=== PATIENT | female | born 1975 | race Caucasian/White ===

== ENCOUNTER → 2017-10-20 14:00 | Outpatient (CLI) | payer OTHER, SELFPAY | PROVIDERS: Family Provider Internal Medicine; PCP Internal Medicine | DX: Z23 Encounter for immunization (principal) | CPT/HCPCS: 90471; 90686 ==

== ENCOUNTER → 2018-01-17 11:54 | Outpatient (CLI) | payer OTHER, SELFPAY ==
--- NOTE | 2018-01-17 | DI.MG.S_ITS ---
BILATERAL DIGITAL SCREENING MAMMOGRAM 3D/2D WITH CAD: 01/17/2018 CLINICAL: Routine screening. Family history of breast cancer. Comparison is made to exams dated: 12/23/2016 mammogram, 12/10/2015 mammogram - [facility], and 12/25/2013 mammogram - [facility]. The tissue of both breasts is extremely dense, which lowers the sensitivity of mammography. Current study was also evaluated with a Computer Aided Detection (CAD) system. No significant masses, calcifications, or other findings are seen in either breast. There has been no significant interval change. IMPRESSION: NEGATIVE There is no mammographic evidence of malignancy. A 1 year screening mammogram is recommended. This exam was interpreted at Station ID: [id number]. NOTE: For mammograms, a report in lay terms will be sent to the patient. Approximately 15% of breast malignancies will not be visualized mammographically. In the management of a palpable breast mass, a negative mammogram must not discourage biopsy of a clinically suspicious lesion. Electronically Signed By: Hellen stringer/lei:01/17/2018 14:37:03 letter sent: Normal Exam ACR BI-RADS Category 1: Negative 3341F
== END ==
PROVIDERS: PCP Internal Medicine; Visit Provider Internal Medicine
DX: Z12.31 Encounter for screening mammogram for malignant neoplasm of breast (principal); Z80.3 Family history of malignant neoplasm of breast
CPT/HCPCS: 77063; 77067

== ENCOUNTER → 2018-11-02 13:17 | Outpatient (CLI) | payer OTHER, SELFPAY | PROVIDERS: PCP Internal Medicine | DX: Z23 Encounter for immunization (principal) | CPT/HCPCS: 90471; 90686 ==

== ENCOUNTER → 2019-08-09 12:22 | Outpatient (CLI) | payer OTHER, SELFPAY ==
--- NOTE | 2019-08-09 | DI.MG.S_ITS ---
BILATERAL DIGITAL SCREENING MAMMOGRAM 3D/2D WITH CAD: 08/09/2019 CLINICAL: Routine screening. Comparison is made to exams dated: 01/17/2018 mammogram, 12/23/2016 mammogram, 12/10/2015 mammogram - [facility], 12/25/2013 mammogram - [facility], and [facility]. The tissue of both breasts is extremely dense, which lowers the sensitivity of mammography. Current study was also evaluated with a Computer Aided Detection (CAD) system. No significant masses, calcifications, or other findings are seen in either breast. There has been no significant interval change. IMPRESSION: NEGATIVE There is no mammographic evidence of malignancy. A 1 year screening mammogram is recommended. This exam was interpreted at Station ID: [id number]. NOTE: For mammograms, a report in lay terms will be sent to the patient. Approximately 15% of breast malignancies will not be visualized mammographically. In the management of a palpable breast mass, a negative mammogram must not discourage biopsy of a clinically suspicious lesion. Electronically Signed By: Kofi allan/lei:08/09/2019 18:53:20 letter sent: Normal Exam ACR BI-RADS Category 1: Negative 3341F
== END ==
PROVIDERS: PCP Internal Medicine; Referring Provider Internal Medicine; Visit Provider Internal Medicine
DX: Z12.31 Encounter for screening mammogram for malignant neoplasm of breast (principal)
CPT/HCPCS: 77063; 77067

== ENCOUNTER → 2019-08-28 14:16 | Outpatient (CLI) | payer OTHER, SELFPAY ==
[2019-08-28 16:29] LABS: Alanine Aminotransferase 26 IU/L (<35); Albumin 4.4 g/dL (3.5-5.0); Albumin Globulin Ratio 1.6 (1.0-2.8); Alkaline Phosphatase 77 U/L (38-126); Aspartate Aminotransferase 42 IU/L (14-36); Bilirubin Total 0.3 mg/dL (0.2-1.3); Bilirubin Unconjugated 0.4 mg/dL (0.0-1.1); Globulin 2.7 g/dL (1.7-4.1); HEMOLYSIS < 15 (0-50); Total Protein 7.1 g/dL (6.3-8.2)
[2019-08-28 16:46] LABS: Free T4, Direct Thyroxine 0.76 ng/dL (0.78-2.19)
[2019-08-28 16:48] LABS: Luteinizing Hormone 8.46 mIU/mL
[2019-08-28 17:00] LABS: Thyroid Stimulating Hormone 1.92 uIU/mL (0.47-4.68)
== END ==
PROVIDERS: PCP Internal Medicine; Referring Provider Internal Medicine; Visit Provider Internal Medicine
DX: N95.1 Menopausal and female climacteric states (principal); R53.83 Other fatigue; R74.0 Nonspecific elevation of levels of transaminase and lactic acid dehydrogenase [LDH]
CPT/HCPCS: 36415; 80076; 83001; 83002; 84439; 84443

== ENCOUNTER → 2019-10-17 07:52 | Outpatient (CLI) | payer OTHER, SELFPAY ==
--- NOTE | 2019-11-07 08:40 | P.HOLT.S_ITS ---
[employer]id Search Marketing Analyst Report Referral & Results Date Patient Seen: 10/17/19 Requesting provider: Yaw Birmingham Indication: Palpitations Duration of monitoring (days): 7 Diary information: There were 13 patient triggered events and 3 patient diary entries Patient triggered events were associated with sinus rhythm and PACs. Patient diary events were associated with sinus rhythm alone Data: Minimum heart rate identified was 55 beats per minute at 05:44 on 10/21/2019 Maximum heart rate was 172 beats per minute at 08:45 on 10/20/2019 Less than 1% of identified beats or either ventricular supraventricular ectopic in origin No other significant dysrhythmias identified Impression: Patient with rare PACs. No clear correlation between patient's reported symptoms any specific dysrhythmia although PACs did occur in connection with some of patient's triggered events, however other times there is no dysrhythmia whatsoever with patient reported events.
== END ==
PROVIDERS: PCP Internal Medicine; Referring Provider Internal Medicine; Visit Provider Internal Medicine
DX: R00.2 Palpitations (principal)
CPT/HCPCS: 0296T; 0298T

== ENCOUNTER → 2019-11-13 18:32 | Outpatient (CLI) | payer OTHER, SELFPAY | PROVIDERS: PCP Internal Medicine; Referring Provider Internal Medicine; Visit Provider Internal Medicine | DX: Z23 Encounter for immunization (principal) | CPT/HCPCS: 90471; 90686 ==

== ENCOUNTER → 2020-01-17 16:02 | Outpatient (CLI) | payer OTHER, SELFPAY ==
--- NOTE | 2020-01-17 16:03 | DI.MRI.S_ITS ---
PROCEDURE: MR LUMBAR SPINE WO CON INDICATIONS: LUMBAR RADICULOPATHY TECHNIQUE: Noncontrast sagittal T1 spin echo and T2 fast echo, sagittal STIR, axial T1 and T2 fast spin echo through the lumbar spine. Axial and oblique coronal T1 spin echo and STIR through the sacrum. In cases with scoliosis, additional coronal T2 fast spin echo may be performed. COMPARISON: [facility], MR, L-SPINE WITHOUT CONTRAST, 01/10/2015, 7:35. [facility], MR, L-SPINE WITHOUT CONTRAST, 04/16/2009, 9:01. [facility], MR, L-SPINE WITHOUT CONTRAST, 02/05/2010, 17:59. [facility], MR, LUMBAR SPINE W/O CONTRAST, 01/18/2013, 16:02. [facility], CR, L-SPINE 2-3 VIEWS, 03/25/2010, 11:01. [facility] [place], CR, SPINE LUMB MIN 4VW, 12/30/2014, 10:34. FINDINGS: Image quality: This examination is limited by involuntary motion artifact. Alignment and Curvature: There is normal bony alignment. Bone Marrow: Marrow is of normal overall signal. No acute vertebral body compression fractures. No sacral fractures. Spinal Cord: Conus medullaris terminates at the L1 level. Visualized cord demonstrates normal signal and size. Paraspinous Soft Tissues: No paravertebral masses. A small amount of free fluid can be seen within the pelvis, which is considered to within physiologic limits. T12-L1: Normal appearance. L1-L2: Normal appearance. L2-L3: Normal appearance. L3-L4: Normal appearance. L4-L5: The disc height and disc signal are relatively well preserved. Mild generalized disc bulge is seen. Mild facet joint hypertrophy is seen. There is kzoh-ft-smfkogru right-sided and mild left-sided neural foraminal narrowing seen. The central canal is widely patent. Mild progression compared to 2015. L5-S1: There is moderate to severe loss of disc height and disc signal. Moderate disc bulge is seen, with a central disc extrusion. There is a focal annular fissure seen posteriorly. Moderate facet joint hypertrophy is seen. There is lntp-be-wpcsgoew left-sided and at least moderate right-sided neural foraminal narrowing seen. There is a mild degree of compression seen upon the exiting right L5 nerve root. Minimal central canal narrowing is seen. Stable from the prior study. Sacrum: Sacral neural foramina appear normal throughout. Superior to the piriformis muscles, the pre-plexal structures appear normal, including the lumbosacral trunk and S1 root. Just anterior to the piriformis muscles, the sacral plexus proper demonstrates normal morphology (lumbosacral trunk, S1 to S3 nerve roots). Inferior to the piriformis muscles, the sciatic nerves appear normal. IMPRESSION: Focal L5-S1 degenerative change. Mild progression of degenerative change at L4-L5 compared to 2015. Unremarkable appearing sacrum. Dictated by: Jose F Lamar M.D. on 01/17/2020 at 17:07 Approved by: Jose F Lamar M.D. on 01/17/2020 at 17:10
== END ==
PROVIDERS: PCP Internal Medicine; Referring Provider Physical Medicine & Rehabilitation; Visit Provider Physical Medicine & Rehabilitation
DX: M47.27 Other spondylosis with radiculopathy, lumbosacral region (principal); M47.26 Other spondylosis with radiculopathy, lumbar region; M51.24 Other intervertebral disc displacement, thoracic region
CPT/HCPCS: 72148

== ENCOUNTER → 2020-02-13 16:11 | Outpatient (CLI) | payer OTHER, SELFPAY ==
[2020-02-13] MEDS: COVID-19 VACC(MODERNA-1)/PF 100 MCG/0.5 ML VIAL IM (16:18)
== END ==
PROVIDERS: PCP Internal Medicine; Visit Provider Internal Medicine
DX: Z23 Encounter for immunization (principal)
CPT/HCPCS: 0011A; 91301

== ENCOUNTER → 2020-03-03 09:33 | Outpatient (CLI) | payer OTHER, SELFPAY ==
[2020-03-04 09:56] LABS: COVID19 -Nasal RAPID Negative (Negative)
== END ==
PROVIDERS: PCP Internal Medicine; Referring Provider Physical Medicine & Rehabilitation; Visit Provider Physical Medicine & Rehabilitation
DX: Z20.822 Contact with and (suspected) exposure to COVID-19 (principal)
CPT/HCPCS: 87635

== ENCOUNTER 2020-03-04 12:27 | Outpatient (CLI) | payer OTHER, SELFPAY ==
[2020-03-04] VITALS (7 sets, daily range): BP systolic 127–142; BP diastolic 87–94; PULSE 74–89; RESP 13–20; TEMP 36.6; O2SAT 99–100
--- NOTE | 2020-03-04 12:28 | DI.RAD.S_ITS ---
PROCEDURE: PAIN L/S TRANSFORAMINAL INJECT INDICATIONS: SPONDYLOSIS COMPARISON: [facility], MR, MR LUMBAR SPINE WO CON, 01/17/2020, 16:35. FINDINGS: Fluoroscopic spot filming was performed to verify placement of spinal needles at the L4-L5 and L5-S1 level(s), as labeled on the films. Appropriate location(s) of the needle tip(s) was confirmed by injection of iodinated contrast. IMPRESSION: Intraprocedural examination within normal limits. Dictated by: Jose F Lamar M.D. on 03/04/2020 at 14:27 Approved by: Jose F Lamar M.D. on 03/04/2020 at 14:28
[2020-03-04] MEDS: IOPAMIDOL 15 ML VIAL 3 ML INJ (13:25)
[2020-03-04] MEDS: BETAMETHASONE 30 MG/5 ML MDV 12 MG INJ (13:26)
[2020-03-04] MEDS: BUPIVACAINE 0.5% (PF) VIAL 2 ML INJ (13:26)
[2020-03-04] MEDS: LIDOCAINE 1% 20 ML 10 ML INJ (13:27)
--- NOTE | 2020-03-04 13:45 | P.PCN_ITS ---
Date/Time/Diagnoses Date of procedure: 03/04/20 Time of procedure: 13:45 Pre-procedure diagnosis: 1. FORAMINAL STENOSIS WITH LE SYMPTOMS Post-procedure diagnosis: same Procedure Notes Procedure: 1. FLUOROSCOPICALLY GUIDED CONTRAST CONTROLLED TRANSFORAMINAL EPIDURAL STEROID INJECTION - RIGHT L5/S1 TFESI Indications: Shilpi is referred by Dr. Birmingham for treatment of Foraminal Stenosis with right LE Symptoms Physician: Rishabh Cota Total Fluoroscopy time (seconds): 23 Total sedation minutes: 0 Complications: none Procedure in detail & Post-procedure care: FINDINGS Foraminal Nerve Root Compression secondary to disc disease and facet hypertrophy DESCRIPTION OF PROCEDURE Following review of allergy and review of potential side effects and complications, including, but not necessarily limited to, infection, allergic reaction, local tissue breakdown, stroke, temporary or permanent nerve injury, paralysis, and possible , the patient indicated that the patient understood and agreed to proceed. An informed consent document was signed by the patient, witnessed by a nurse, and placed in the patient's chart. Additionally, other treatment options including medications, modalities, and physical therapy were reviewed with the patient. After review of previous anaesthesic history and IV conscious sedation the patient was deemed safe to proceed with today?s procedure with IV conscious sedation as ASA class II designation. Safety time-out was performed to confirm patient ID, procedure to be performed and site of procedure. IV sedation was deemed unnecessary and thus not administered by the RN after DO order, titrated to patient comfort during the course of the procedure while the patient remained responsive to all verbal commands In the prone position following sterile prep and drape of the lumbar region, the right L5/S1 posterior neuroforamen was identified fluoroscopically. The skin was anesthetized via a 25-gauge 1.5-inch needle with 1% lidocaine solution. At this point, a 25-gauge 3.5-inch spinal needle was atraumatically introduced and advanced under fluoroscopic guidance through the posterior right L5/S1 neuroforamen to approximately the anterior aspect of the canal. Depth was confirmed on lateral view. Following negative aspiration, injection of approximately 1.5cc of Isovue 200 under live fluoroscopy in the AP view confirmed excellent flow along the nerve root, into the epidural space without vascular or intrathecal uptake observed Radiological data, including multiple fluoroscopic views of the lumbosacral spine, reveal a spinal needle at the right L5/S1 posterior neuroforamen. Subsequent views show flow of contrast material flowing superiorly and inferiorly along the nerve root confirming epidural flow. Subsequently, a test dose of 1.5cc of 1% lidocaine solution was administered and patient was observed for two minutes for signs or symptoms of complications, including abdominal pain, shortness of breath, bilateral upper or lower extremity weakness, nausea and vomiting, prior to steroid injection. At this point, a total of 3cc or 20mg of dexamethasone and 6mg betamethasone was injected without incident. The procedure tolerated the procedure well without signs or symptoms of complications prior to transfer to the recovery area continued monitoring without incident. The patient was then transferred to the recovery area where they were observed for an appropriate time after the injection. The patient reported a VAS score of 5 prior to the procedure and a post-procedure VAS of 0. POST OP INSTRUCTIONS The patient was provided a Pain Log to continue to record their response to the target-specific procedure prior to follow-up visit with their referring physician. Additionally, specific post-injection care instructions and a contact number to our office were provided if concerns arise regarding possible complications associated with the procedure are suspected.
--- NOTE | 2020-03-04 13:46 | P.PCN_ITS ---
Date/Time/Diagnoses Date of procedure: 03/04/20 Time of procedure: 13:47 Pre-procedure diagnosis: 1. FORAMINAL STENOSIS WITH LE SYMPTOMS Post-procedure diagnosis: same Procedure Notes Procedure: 1. FLUOROSCOPICALLY GUIDED CONTRAST CONTROLLED TRANSFORAMINAL EPIDURAL STEROID INJECTION - RIGHT L4/5 TFESI Indications: Shilpi is referred by Dr. Birmingham for treatment of Foraminal Stenosis with Right LE Symptoms Physician: Rishabh Cota Total Fluoroscopy time (seconds): 23 Total sedation minutes: 0 Complications: none Procedure in detail & Post-procedure care: FINDINGS Foraminal Nerve Root Compression secondary to disc disease and facet hypertrophy DESCRIPTION OF PROCEDURE Following review of allergy and review of potential side effects and complications, including, but not necessarily limited to, infection, allergic reaction, local tissue breakdown, stroke, temporary or permanent nerve injury, paralysis, and possible , the patient indicated that the patient understood and agreed to proceed. An informed consent document was signed by the patient, witnessed by a nurse, and placed in the patient's chart. Additionally, other treatment options including medications, modalities, and physical therapy were reviewed with the patient. After review of previous anaesthesic history and IV conscious sedation the patient was deemed safe to proceed with today?s procedure with IV conscious sedation as ASA class II designation. Safety time-out was performed to confirm patient ID, procedure to be performed and site of procedure. IV sedation was deemed unnecessary and thus not administered by the RN after DO order, titrated to patient comfort during the course of the procedure while the patient remained responsive to all verbal commands In the prone position following sterile prep and drape of the lumbar region, the Right L4/5 posterior neuroforamen was identified fluoroscopically. The skin was anesthetized via a 25-gauge 1.5-inch needle with 1% lidocaine solution. At this point, a 25-gauge 3.5-inch spinal needle was atraumatically introduced and advanced under fluoroscopic guidance through the posterior Right L4/5 neuroforamen to approximately the anterior aspect of the canal. Depth was confirmed on lateral view. Following negative aspiration, injection of approximately 1.5cc of Isovue 200 under live fluoroscopy in the AP view confirmed excellent flow along the nerve root, into the epidural space without vascular or intrathecal uptake observed Radiological data, including multiple fluoroscopic views of the lumbosacral spine, reveal a spinal needle at the right L4/5 posterior neuroforamen. Subsequent views show flow of contrast material flowing superiorly and inferiorly along the nerve root confirming epidural flow. Subsequently, a test dose of 1.5 cc of 1% lidocaine solution was administered and patient was observed for two minutes for signs or symptoms of complications, including abdominal pain, shortness of breath, bilateral upper or lower extremity weakness, nausea and vomiting, prior to steroid injection. At this point, a total of 3cc or 20mg of dexamethasone and 6mg of betamethasone was injected without incident. The procedure tolerated the procedure well without signs or symptoms of complications prior to transfer to the recovery area continued monitoring without incident. The patient was then transferred to the recovery area where they were observed for an appropriate time after the injection. The patient reported a VAS score of 5 prior to the procedure and a post- procedure VAS of 0. POST OP INSTRUCTIONS The patient was provided a Pain Log to continue to record their response to the target-specific procedure prior to follow-up visit with their referring physician. Additionally, specific post-injection care instructions and a contact number to our office were provided if concerns arise regarding possible complications associated with the procedure are suspected.
== END 2020-03-04 13:47 | disposition home or self-care (01) ==
PROVIDERS: PCP Internal Medicine; Referring Provider Physical Medicine & Rehabilitation; Visit Provider Physical Medicine & Rehabilitation
DX: M48.061 Spinal stenosis, lumbar region without neurogenic claudication (principal); M48.07 Spinal stenosis, lumbosacral region; M51.16 Intervertebral disc disorders with radiculopathy, lumbar region; M51.17 Intervertebral disc disorders with radiculopathy, lumbosacral region
CPT/HCPCS: 64483; 64484; 64494; 99152; J0702; J2250; J3010

== ENCOUNTER → 2020-03-11 14:48 | Outpatient (CLI) | payer OTHER, SELFPAY ==
[2020-03-11] MEDS: COVID-19 VACC #2, MRNA(MOD) 100 MCG/0.5 ML VIAL IM (14:54)
== END ==
PROVIDERS: PCP Internal Medicine; Visit Provider Internal Medicine
DX: Z23 Encounter for immunization (principal)
CPT/HCPCS: 0012A; 91301

== ENCOUNTER → 2020-04-17 15:57 | Outpatient (CLI) | payer OTHER, SELFPAY ==
--- NOTE | 2020-04-17 16:05 | DI.RAD.S_ITS ---
PROCEDURE: XR LUMBAR SPINE MIN 4V INDICATIONS: herniation of intravertebral disc betweem L5-S1 TECHNIQUE: 5 views of the lumbar spine acquired, including flexion and extension views. COMPARISON: [facility], , L-SPINE 2-3 VIEWS, 03/25/2010, 11:01. FINDINGS: Bones: 5 nonrib-bearing vertebrae are present. Trace multilevel retrolisthesis. Severe disc degeneration at the L5-S1 level where there is mild facet joint arthropath.. No vertebral body compression fractures. No suspicious bony lesions. Oblique views demonstrating no pars interarticularis defects. Soft tissues: Overlying bowel gas pattern is normal. No suspicious soft tissue calcifications. IUD projecting over the mid pelvis. IMPRESSION: 1. Severe disc degeneration at the L5-S1 level where there is mild facet joint arthropathy. Dictated by: Carter Aleman [facility] Interpreted: Pearl Culver MD on 04/17/2020 at 16:19 Approved by: Pearl Culver M.D. on 04/17/2020 at 17:30
== END ==
PROVIDERS: PCP Internal Medicine; Referring Provider Physical Medicine & Rehabilitation; Visit Provider Physical Medicine & Rehabilitation
DX: M51.17 Intervertebral disc disorders with radiculopathy, lumbosacral region (principal); M47.27 Other spondylosis with radiculopathy, lumbosacral region
CPT/HCPCS: 72110

== ENCOUNTER → 2020-11-18 | Outpatient (CLI) | payer OTHER, SELFPAY | PROVIDERS: PCP Internal Medicine; Referring Provider Internal Medicine; Visit Provider Internal Medicine | DX: Z23 Encounter for immunization (principal) | CPT/HCPCS: 90471; 90686 ==

== ENCOUNTER → 2021-08-11 16:23 | Outpatient (CLI) | payer OTHER, SELFPAY ==
--- NOTE | 2021-08-11 | DI.MG.S_ITS ---
BILATERAL DIGITAL SCREENING MAMMOGRAM 3D/2D WITH CAD: 08/11/2021 CLINICAL: Routine screening. Family history of breast cancer. Comparison is made to exams dated: 08/09/2019 mammogram, 01/17/2018 mammogram, and 12/23/2016 mammogram - [facility]. The tissue of both breasts is extremely dense, which lowers the sensitivity of mammography. Current study was also evaluated with a Computer Aided Detection (CAD) system. No significant masses, calcifications, or other findings are seen in either breast. There has been no significant interval change. IMPRESSION: NEGATIVE There is no mammographic evidence of malignancy. A 1 year screening mammogram is recommended. Based on Tyrer-Cuzick model (a risk assessment model), the patient's lifetime risk is 28.7% and her 10 year risk is 6.3%. If a patient has an elevated risk, a more comprehensive evaluation should be considered and/or a referral to a genetic counselor. The [place] [employer], [employer], and NCCN Guidelines advise the consideration of Breast MRI as an adjunct to screening mammography in patients whose Lifetime risk to develop breast cancer is 20% or higher. This exam was interpreted at Station ID: [id number]. NOTE: For mammograms, a report in lay terms will be sent to the patient. Approximately 15% of breast malignancies will not be visualized mammographically. In the management of a palpable breast mass, a negative mammogram must not discourage biopsy of a clinically suspicious lesion. Electronically Signed By: Greg de la rosa/lei:08/12/2021 08:39:39 letter sent: Normal Exam ACR BI-RADS Category 1: Negative 3341F
== END ==
PROVIDERS: PCP Internal Medicine; Referring Provider Internal Medicine; Visit Provider Internal Medicine
DX: Z12.31 Encounter for screening mammogram for malignant neoplasm of breast (principal); Z80.3 Family history of malignant neoplasm of breast
CPT/HCPCS: 77063; 77067

== ENCOUNTER → 2021-12-16 15:38 | Outpatient (CLI) | payer OTHER, SELFPAY ==
--- NOTE | 2021-12-16 15:38 | DI.US.S_ITS ---
PROCEDURE: US PELVIC COMPLETE INDICATIONS: IUD string check TECHNIQUE: Real-time scanning was performed of the pelvic organs, with image documentation. Additional endovaginal scanning was necessary due to incomplete visualization of the adnexal and endometrial structures by transabdominal scanning. COMPARISON: [facility], US, US PELVIC COMPLETE, 10/09/2019, 11:43. FINDINGS: Uterus: Uterus is anteverted and normal in size at 7.8 x 4.9 x 4.4 cm. The myometrium is homogeneous. The is not well seen secondary to intrauterine device which is centrally position. Trace endocervical fluid. Ovaries: The right ovary measures 4.4 x 3.8 x 2.9 cm, with a calculated ovarian volume of 25 cc. The left ovary measures 2.3 x 2.9 x 2.2 cm, with a calculated ovarian volume of 7.6 cc. The ovaries have a normal sonographic appearance. Less than 12 follicles can be seen in each ovary. Simple right ovarian cyst measuring 4.2 cm. . Other: No pathologic free abdominal or pelvic fluid. IMPRESSION: 1. Intrauterine device in expected central endometrial position. 2. 4.2 cm simple right ovarian cyst. We strive to produce accurate, complete, and clear reports of imaging services. To assist us in improving patient care, this report was composed using standard report templates and voice recognition software. Therefore, it may contain abnormal punctuation, insertions and/or omissions. Occasional wrong-word or sound-alike substitutions may occur. Though we review the report and make efforts to correct it, we do recommend that the report be read carefully in proper context to recognize any text inaccuracies. Dictated by: Carter CUELLO Interpreted: Greg Mir MD on 12/16/2021 at 16:06 Transcribed by: LISETTE on 12/16/2021 at 16:08 Approved by: Greg Mir M.D. on 12/16/2021 at 22:19
== END ==
PROVIDERS: PCP Internal Medicine; Referring Provider Obstetrics & Gynecology; Visit Provider Obstetrics & Gynecology
DX: Z30.431 Encounter for routine checking of intrauterine contraceptive device (principal); N83.291 Other ovarian cyst, right side
CPT/HCPCS: 76830; 76856; 93976

== ENCOUNTER 2022-02-16 12:57 | Outpatient (CLI) | payer OTHER, SELFPAY ==
--- NOTE | 2022-02-16 12:58 | DI.RAD.S_ITS ---
PROCEDURE: PAIN L INTERLAMINAR/CAUDAL INJ INDICATIONS: SPONDYLOSIS COMPARISON: None. FINDINGS: Fluoroscopic spot filming was performed to verify placement of spinal needles at the L5-S1 interlaminar space level(s), as labeled on the films. Appropriate location(s) of the needle tip(s) was confirmed by injection of iodinated contrast. IMPRESSION: Access needle at the L5-S1 interlaminar space for translaminar epidural steroid injection. Dictated by: Kaitlin Alarcon MD, PhD on 02/16/2022 at 15:03 Approved by: Kaitlin Alarcon MD, PhD on 02/16/2022 at 15:03
[2022-02-16 13:09] VITALS: BP 131/87; PULSE 92; RESP 20; TEMP 36.7; O2SAT 97
--- NOTE | 2022-02-16 13:15 | PC.NURSE ---
Patient declines sedation and IV, MD aware and ok for no IV to be placed.
[2022-02-16 13:45] VITALS: BP 128/81; PULSE 88; RESP 17; O2SAT 100
[2022-02-16 13:50] VITALS: BP 125/82; PULSE 87; RESP 14; O2SAT 100
[2022-02-16] MEDS: BUPIVACAINE 0.5% (PF) 30 ML VIAL INJ (13:52)
[2022-02-16] MEDS: IOPAMIDOL 15 ML VIAL 3 ML INJ (13:52)
[2022-02-16] MEDS: DEXAMETHASONE 10 MG/ML VIAL 20 MG INJ (13:53)
[2022-02-16 13:55] VITALS: BP 138/86; PULSE 89; RESP 20; O2SAT 99
[2022-02-16 14:00] VITALS: BP 137/92; PULSE 88; RESP 20; O2SAT 98
--- NOTE | 2022-02-16 14:00 | PM.PROC.IR.1 ---
Date/Time/Diagnoses Date of procedure: 02/16/22 Time of procedure: 14:00 Pre-procedure diagnosis: 1. HNP WITH RADICULAR FEATURES, 2. MULTILEVEL CENTRAL STENOSIS, Post-procedure diagnosis: same Procedure Notes Procedure: 1. FLUOROSCOPICALLY GUIDED CONTRAST CONTROLLED INTERLAMINAR EPIDURAL STEROID INJECTION - L5/S1 Indications: Shilpi is referred by Dr. Birmingham for treatment of Bilateral Foraminal Stenosis L>R LE symptoms. Physician: Rishabh Cota Total Fluoroscopy time (seconds): 10 Total sedation minutes: 0 Complications: none Procedure in detail & Post-procedure care: FINDINGS Multilevel Central Spinal Stenosis with Nerve Root Compression DESCRIPTION OF PROCEDURE Fluoroscopically guided, contrast-controlled L5/S1 translaminar epidural steroid injection. Following review of allergy and review of potential side effects and complications, including, but not necessarily limited to, infection, allergic reaction, local tissue breakdown, temporary as well as permanent nerve injury, paralysis, stroke and possible , the patient indicated that the patient understood and agreed to proceed. An informed consent document was signed by the patient, witnessed by a nurse, and placed in the patient's chart. Additionally, other treatment options including modalities, medications, and physical therapy were reviewed with the patient. After review of previous anaesthesic history and IV conscious sedation the patient was deemed safe to proceed with today?s procedure with IV conscious sedation as ASA class II designation. Safety time-out was performed to confirm patient ID, procedure to be performed and site of procedure. IV sedation was deemed unnecessary and thus not administered by the RN after DO order, titrated to patient comfort during the course of the procedure while the patient remained responsive to all verbal commands. In the prone position, following sterile prep and drape of the lumbar region, the L5/S1 translaminar space was identified fluoroscopically. The skin was anesthetized via a 25-gauge, 1.5-inch needle with 1% lidocaine solution. At this point, a 22-gauge short bevel spinal needle was atraumatically introduced and advanced under fluoroscopic guidance into the region of the L5/S1 translaminar space. Depth was confirmed on lateral view. Radiological data, including multiple fluoroscopic views of the lumbar spine, reveal a spinal needle at the L5/S1 translaminar space. Lateral views then show placement of the needle in the epidural space. Subsequent views show contrast material flowing superiorly and inferiorly in the epidural space. No vascular or intrathecal uptake is observed. At this point, using loss of resistance technique with saline and air, the epidural space was entered. This was confirmed following negative aspiration with injection of approximately 1.5cc of Isovue 200, showing excellent epidural flow without vascular or intrathecal uptake. At this point, 1 cc of 1% lidocaine solution combined with 3cc or 20mg of dexamethasone and 6mg of betamethasone was injected without incident. The patent tolerated the procedure without signs of symptoms of complications prior to transfer to the recovery area for further monitoring. The patient was then transferred to the recovery area where they were observed for an appropriate period of time after the injection. The patient reported a VAS score of 6 prior to the procedure and a post-procedure VAS of 0. POST OP INSTRUCTIONS The patient was provided a Pain Log to continue to record their response to the target-specific procedure prior to follow-up visit with their referring physician. Additionally, specific post-injection care instructions and a contact number to our office were provided if concerns arise regarding possible complications associated with the procedure are suspected.
[2022-02-16 14:05] VITALS: BP 133/89; PULSE 89; RESP 20; O2SAT 99
--- NOTE | 2022-02-16 14:13 | PC.NURSE ---
Patient refused WC escort out. She was walked to her office in [facility] by this RN. No weakness, baseline activity level. She did not receive any sedation. Dr. Cota aware.
== END 2022-02-16 14:14 | disposition home or self-care (01) ==
PROVIDERS: PCP Internal Medicine; Referring Provider Physical Medicine & Rehabilitation; Visit Provider Physical Medicine & Rehabilitation
DX: M51.17 Intervertebral disc disorders with radiculopathy, lumbosacral region (principal); M48.07 Spinal stenosis, lumbosacral region
CPT/HCPCS: 62323; J0702; J1030; J1100

== ENCOUNTER 2022-06-17 12:25 | Outpatient (CLI) | payer OTHER, SELFPAY ==
--- NOTE | 2022-06-17 12:28 | DI.RAD.S_ITS ---
PROCEDURE: PAIN L INTERLAMINAR/CAUDAL INJ INDICATIONS: SPONDYLOSIS COMPARISON: [facility], XA, PAIN L INTERLAMINAR/CAUDAL INJ, 02/16/2022, 14:51. FINDINGS: Fluoroscopic spot filming was performed to verify placement of a spinal needle at the L5-S1 level, as labeled on the films. Appropriate location of the needle tip was confirmed by injection of iodinated contrast. IMPRESSION: No significant intraprocedural abnormality. Dictated by: Jose F Lamar M.D. on 06/17/2022 at 13:36 Approved by: Jose F Lamar M.D. on 06/17/2022 at 13:36
[2022-06-17 13:04] VITALS: BP 121/86; PULSE 72; RESP 12; O2SAT 98
[2022-06-17 13:32] VITALS: BP 128/81; PULSE 86; RESP 21; O2SAT 99
[2022-06-17] MEDS: IOPAMIDOL 15 ML VIAL 3 ML INJ (13:34)
[2022-06-17] MEDS: BUPIVACAINE 0.25% (PF) VIAL 2 ML INJ (13:34)
[2022-06-17] MEDS: DEXAMETHASONE 10 MG/ML VIAL 20 MG INJ (13:35)
[2022-06-17] MEDS: BETAMETHASONE 30 MG/5 ML MDV 6 MG INJ (13:35)
[2022-06-17 13:37] VITALS: BP 123/82; PULSE 86; RESP 13; O2SAT 97
[2022-06-17 13:40] VITALS: BP 155/84; PULSE 80; RESP 16; O2SAT 98
--- NOTE | 2022-06-17 13:40 | PM.PROC.IR.1 ---
Date/Time/Diagnoses Date of procedure: 06/17/22 Time of procedure: 13:41 Pre-procedure diagnosis: 1. HNP WITH RADICULAR FEATURES, 2. MULTILEVEL CENTRAL STENOSIS, Post-procedure diagnosis: same Procedure Notes Procedure: 1. FLUOROSCOPICALLY GUIDED CONTRAST CONTROLLED INTERLAMINAR EPIDURAL STEROID INJECTION - L5/S1 Indications: Shilpi is referred by Dr. Birmingham for treatment of Bilateral Foraminal Stenosis L>R LE symptoms. Physician: Rishabh Cota Total Fluoroscopy time (seconds): 6 Total sedation minutes: 0 Complications: none Procedure in detail & Post-procedure care: FINDINGS Multilevel Central Spinal Stenosis with Nerve Root Compression DESCRIPTION OF PROCEDURE Fluoroscopically guided, contrast-controlled L5/S1 translaminar epidural steroid injection. Following review of allergy and review of potential side effects and complications, including, but not necessarily limited to, infection, allergic reaction, local tissue breakdown, temporary as well as permanent nerve injury, paralysis, stroke and possible , the patient indicated that the patient understood and agreed to proceed. An informed consent document was signed by the patient, witnessed by a nurse, and placed in the patient's chart. Additionally, other treatment options including modalities, medications, and physical therapy were reviewed with the patient. After review of previous anaesthesic history and IV conscious sedation the patient was deemed safe to proceed with today?s procedure with IV conscious sedation as ASA class II designation. Safety time-out was performed to confirm patient ID, procedure to be performed and site of procedure. IV sedation was deemed unnecessary and thus not administered by the RN after DO order, titrated to patient comfort during the course of the procedure while the patient remained responsive to all verbal commands. In the prone position, following sterile prep and drape of the lumbar region, the L5/S1 translaminar space was identified fluoroscopically. The skin was anesthetized via a 25-gauge, 1.5-inch needle with 1% lidocaine solution. At this point, a 22-gauge short bevel spinal needle was atraumatically introduced and advanced under fluoroscopic guidance into the region of the L5/S1 translaminar space. Depth was confirmed on lateral view. Radiological data, including multiple fluoroscopic views of the lumbar spine, reveal a spinal needle at the L5/S1 translaminar space. Lateral views then show placement of the needle in the epidural space. Subsequent views show contrast material flowing superiorly and inferiorly in the epidural space. No vascular or intrathecal uptake is observed. At this point, using loss of resistance technique with saline and air, the epidural space was entered. This was confirmed following negative aspiration with injection of approximately 1.5cc of Isovue 200, showing excellent epidural flow without vascular or intrathecal uptake. At this point, 1cc of 1% lidocaine solution combined with 3cc or 20mg of dexamethasone and 6mg of betamethasone was injected without incident. The patent tolerated the procedure without signs of symptoms of complications prior to transfer to the recovery area for further monitoring. The patient was then transferred to the recovery area where they were observed for an appropriate period of time after the injection. The patient reported a VAS score of 6 prior to the procedure and a post-procedure VAS of 0. POST OP INSTRUCTIONS The patient was provided a Pain Log to continue to record their response to the target-specific procedure prior to follow-up visit with their referring physician. Additionally, specific post-injection care instructions and a contact number to our office were provided if concerns arise regarding possible complications associated with the procedure are suspected.
== END 2022-06-17 13:47 | disposition home or self-care (01) ==
LOC: RAD 12:27
PROVIDERS: PCP Internal Medicine; Referring Provider Physical Medicine & Rehabilitation; Visit Provider Physical Medicine & Rehabilitation
DX: M51.17 Intervertebral disc disorders with radiculopathy, lumbosacral region (principal); M48.07 Spinal stenosis, lumbosacral region
CPT/HCPCS: 62323; J0702; J1100; J3490

== ENCOUNTER → 2022-07-15 16:35 | Outpatient (CLI) | payer OTHER, SELFPAY ==
--- NOTE | 2022-07-15 16:36 | DI.RAD.S_ITS ---
PROCEDURE: XR FOOT RT MIN 3V INDICATIONS: foot pain TECHNIQUE: 3 views of the foot were acquired. COMPARISON: None. FINDINGS: Bones: No fractures or dislocations. 1st MTP joint osteoarthritic changes are seen with joint space narrowing and subchondral sclerosis. Well-defined plantar calcaneal enthesophyte is noted. No suspicious bony lesions. Soft tissues: No tibiotalar joint effusion. Achilles tendon appears normal. IMPRESSION: 1st MTP joint osteoarthritis. No fracture or dislocation. Plantar calcaneal enthesophyte. Dictated by: Raghu Shepherd M.D. on 07/15/2022 at 16:42 Approved by: Raghu Shepherd M.D. on 07/15/2022 at 16:43
== END ==
PROVIDERS: PCP Internal Medicine; Referring Provider Internal Medicine; Visit Provider Internal Medicine
DX: M19.071 Primary osteoarthritis, right ankle and foot (principal); M77.31 Calcaneal spur, right foot; M79.671 Pain in right foot
CPT/HCPCS: 73630

== ENCOUNTER → 2022-08-13 15:16 | Outpatient (CLI) | payer OTHER, SELFPAY ==
--- NOTE | 2022-08-13 | DI.MG.S_ITS ---
BILATERAL DIGITAL SCREENING MAMMOGRAM 3D/2D WITH CAD: 08/13/2022 CLINICAL: Routine screening. Family history of breast cancer. Comparison is made to exams dated: 08/11/2021 mammogram, 08/09/2019 mammogram, and 01/17/2018 mammogram - [facility]. Both breasts are heterogeneously dense, which may obscure small masses (category c / 51-75% glandular tissue). Current study was also evaluated with a Computer Aided Detection (CAD) system. No significant masses, calcifications, or other findings are seen in either breast. There has been no significant interval change. IMPRESSION: NEGATIVE There is no mammographic evidence of malignancy. A 1 year screening mammogram is recommended. Based on the Tyrer Cuzick model (a risk assessment model) the patient's lifetime risk is 19.8% and her 10 year risk is 4.4%. According to the ACR, ACS, and NCCN guidelines, an annual breast MRI exam along with mammogram is recommended if the patient's lifetime risk is 20% or greater. This exam was interpreted at Station ID: [id number]. NOTE: For mammograms, a report in lay terms will be sent to the patient. Approximately 15% of breast malignancies will not be visualized mammographically. In the management of a palpable breast mass, a negative mammogram must not discourage biopsy of a clinically suspicious lesion. Electronically Signed By: Luis lopez/lei:08/13/2022 21:48:58 letter sent: Normal Exam ACR BI-RADS Category 1: Negative 3341F
== END ==
PROVIDERS: PCP Internal Medicine; Referring Provider Internal Medicine; Visit Provider Internal Medicine
DX: Z12.31 Encounter for screening mammogram for malignant neoplasm of breast (principal); Z80.3 Family history of malignant neoplasm of breast
CPT/HCPCS: 77063; 77067

== ENCOUNTER → 2022-09-22 15:45 | Outpatient (CLI) | payer OTHER, SELFPAY ==
--- NOTE | 2022-09-22 | DI.MRI.S_ITS ---
PROCEDURE: MR ANKLE RT WO/W CON INDICATIONS: Ganglion, right ankle and foot TECHNIQUE: Noncontrast sagittal T1 spin echo and T2 fast spin echo with fat saturation, axial proton density fast spin echo and T2 fast spin echo with fat saturation, axial T1 spin echo with fat saturation, coronal T1 spin echo and T2 fast spin echo with fat saturation through the ankle/hindfoot. Post-contrast axial, coronal, and sagittal T1 spin echo with fat saturation through the ankle/hindfoot. COMPARISON: [facility], CR, XR FOOT RT MIN 3V, 07/15/2022, 16:31. FINDINGS: Image quality: Excellent. Bones and joints: No bone marrow contusions or fractures. No hindfoot coalitions. No osteochondral injuries of the talar dome. A small nonenhancing ganglion cyst measuring 5 x 3 x 3 mm is seen at the dorsal lateral aspect of the midfoot overlying the 4th metatarsal base, which corresponds to the palpable abnormality as indicated by skin marker. A 4 mm ganglion cyst is seen adjacent to the anterior tibialis tendon insertion. Mild degenerative spurring of the dorsal aspect of the talonavicular joint. No enhancing soft tissue mass. Medial structures: The deep and superficial layers of the deltoid ligament appear intact. The spring ligament components are intact. Mild tenosynovitis of the posterior tibialis, flexor digitorum longus, and flexor hallucis longus tendons. The posterior tibial neurovascular bundle appears normal within the tarsal tunnel, without extrinsic mass effect. Lateral structures: The anterior talofibular, calcaneofibular, and posterior talofibular ligaments appear intact. The anterior and posterior tibiofibular ligaments appear intact. The peroneus longus and brevis tendons demonstrate normal location and morphology. The sinus tarsi demonstrates normal fatty signal. Anterior structures: The tibialis anterior, extensor hallucis longus, and extensor digitorum longus tendons appear intact. The dorsal talonavicular ligament appears intact. Posterior and plantar structures: Mild thickening of the Achilles tendon is consistent with tendinosis. The proximal plantar fascia is mildly thickened without surrounding edema. A nonedematous plantar calcaneal enthesophyte is present. No abductor digiti quinti muscle atrophy to suggest Patel neuropathy. IMPRESSION: 1. Small 5 mm ganglion cyst is seen at the dorsal lateral aspect of the midfoot overlying the 4th metatarsal base that corresponds to the palpable abnormality. Additional 4 mm ganglion cyst at the medial midfoot adjacent to the anterior tibialis tendon insertion. 2. Mild diffuse tenosynovitis of the medial flexor tendons. 3. Mild Achilles tendinosis. 4. Chronic mild proximal plantar fasciitis. 5. Mild degenerative changes at the dorsal talonavicular joint. Approved by: Greg Zayas M.D. on 09/23/2022 at 13:24
== END ==
PROVIDERS: PCP Internal Medicine; Referring Provider Podiatrist; Visit Provider Podiatrist
DX: M67.471 Ganglion, right ankle and foot (principal); M65.871 Other synovitis and tenosynovitis, right ankle and foot; M72.2 Plantar fascial fibromatosis
CPT/HCPCS: 73723; A9579

== ENCOUNTER → 2022-11-11 | Outpatient (CLI) | payer OTHER, SELFPAY | PROVIDERS: PCP Internal Medicine; Referring Provider Family Medicine; Visit Provider Family Medicine | DX: Z23 Encounter for immunization (principal) | CPT/HCPCS: 90471; 90686 ==

== ENCOUNTER 2023-04-07 16:00 | Outpatient (RCR) | payer OTHER, SELFPAY ==
--- NOTE | 2023-02-09 17:56 | PT.OTN ---
Current Diagnoses Pain in left ankle and joints of left foot (02/09/23) Pain in leg, unspecified (02/09/23) Physical Therapy Treatment Note PT-OP-A Visit Information Start: 02/09/23 17:24 Freq: Status: Active Protocol: Document 02/09/23 16:30 DCW (Rec: 02/09/23 17:43 DCW [id number]) Out-Patient Physical Therapy Visit Information Visit Information Visit Type Initial Evaluation Visit Start Time 16:30 Visit Stop Time 17:15 Total Visit Minutes 45 Visit Number 1 Number of MICROFILMER Visits 0 Evaluation Information Evaluation Date 02/09/23 PT-OP-B Current Condition Start: 02/09/23 17:24 Freq: Status: Active Protocol: Document 02/09/23 16:30 DCW (Rec: 02/09/23 17:43 DCW [id number]) Current Condition History of Current Condition Onset Date January 15, 2023 Current Complaints left calf pain History of Current Condition Pt is a 47 year old female persenting with a 3.5 week history of left calf pain, limiting her ability to push- off with her foot during gait or raise up onto her toes. Pt reports she was exercising gently on an eliptical, felt a pop with medial calf pain, and stopped for a bit to let it pass. Upon restarting, she felt another pop, with significantly more pain, and had to stop. Following this incident, she was having much more difficulty with ambulation, was unable to lift her toes or stretch her calf without significant discomfort . Has improved somewhat since initial injury, but still unable to perform a heel raise or get much push-off during gait. 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 Pt does have a history of bilateral Achilles injuries, reports that she was experiencing bilateral pain of an extended period of time, eventually found out she had tears in her Achilles tendons, and her recovery lasted ~18 months, finally resolving ~1 year ago. Has been doing well since then until last month. Seen by her PCP in 01/24/23, recommended MRI, but has been denied by insurance so far. Treatment Goals Patient/Caregiver Goals Return to normal work-out intensity and frequency PT-OP-C Subjective Start: 02/09/23 17:24 Freq: Status: Active Protocol: Document 02/09/23 16:30 DCW (Rec: 02/09/23 17:43 DCW [id number]) OP-PT Subjective Patient Comments Patient Comments I haven't really wanted to go all out with my workouts, I don't want to make anything worse. Patient Reported Progress Improving Patient Questionnaires Lower Extremity Functional Scale LEFS Score 51/80 = 63.75% LEFS Impairment 1 to 19% Impaired (Score 63-79 ) PT-OP-F Manual Assessment Start: 02/09/23 17:24 Freq: Status: Active Protocol: Document 02/09/23 16:30 DCW (Rec: 02/09/23 17:43 DCW [id number]) Manual Assessments Soft Tissue Assessment Soft Tissue Mobility Assessment Tenderness with palpation 3/4: Wincing and withdraw along poterior tibialis, minimal contraction/firing of posterior tib with ankle movement. Joint Mobility Assessment Joint Mobility Assessment Good stability of joint PT-OP-K Range of Motion Start: 02/09/23 17:24 Freq: Status: Active Protocol: Document 02/09/23 16:30 DCW (Rec: 02/09/23 17:43 DCW [id number]) Ankle and Foot Goniometric Range of Motion Ankle and Foot Bilateral Active Ankle/Foot ROM WFL Yes Testing Position Sitting PT-OP-M Strength Start: 02/09/23 17:24 Freq: Status: Active Protocol: Document 02/09/23 16:30 DCW (Rec: 02/09/23 17:43 DCW [id number]) Ankle/Foot Strength Ankle and Foot Manual Muscle Testing Left Plantarflexion (S1) 2+ Poor+ Comments Pain limits PF PT-OP-Q Treatments Start: 02/09/23 17:24 Freq: Status: Active Protocol: Document 02/09/23 16:30 DCW (Rec: 02/09/23 17:45 DCW [id number]) Therapeutic Exercises Sitting Exercises Inversion Sitting Exercise Name Isometric ankle inversion vs ball Side bilateral Reps/Minutes 5 hold x20 Ankle Flexion Sitting Exercise Name 4-way ankle flexion Side left Resistance Lv 2 PT-OP-T Assessment and Plan Start: 02/09/23 17:24 Freq: Status: Active Protocol: Document 02/09/23 16:30 DCW (Rec: 02/09/23 17:55 DCW [id number]) Physical Therapy Assessment Rehab Potential Rehabilitation Potential Fair Evaluation Complexity Number of Personal Factors/Comorbidities 1-2 Number of Body Systems Impaired 1-2 Clinical Presentation at Evaluation Stable Impairments Impairments Functional Activities, Functional Mobility,Gait,Pain, Strength Goals Two Impairment Pt unable to perform usual exercise routine due to left ankle/calf pain [employer] Goal (LTG) Pt to return to prior level of 85% frequency and intensity of exercise routine without limitations due to ankle pain or weakness. LTG Duration 04/10/23 One Impairment Pt does not have an appropriate home exercise program Short Term Goal (STG) Pt to be independent and compliant with an appropriate HEP STG Duration 03/12/23 Assessment Summary Assessment Pt presents with signs and symptoms consistent with lower leg soft tissue injury. Based on continued pain and weakness, combined with pt's reports of multiple popping sounds at the time of injury, may be suggestive of potential muscle tears. Pt's biggest limitations are inversion and plantar flexion. Pain along medial malleoli, navicular insertion, and medial/ posterior calf likely suggestive of posterior tibialis involvement. Would strongly suggest advanced imaging to determine extent of potential damage and to rule in/out potential tearing. Pt may benefit from gentle mobility and strengthening exercises, if does not progress as expected, may be necessary to refer to Ortho. Physical Therapy Plan Frequency and Duration Frequency of Treatment 1-2x/week Plan of Care Start Date 02/09/23 Plan of Care End Date 04/10/23 Therapeutic Interventions Therapeutic Interventions Balance Training,Home Exercise Program,Manual Therapy, Neuromuscular Re-education, Patient/Caregiver Education, Self-Care/Home Management,Soft Tissue Mobilization, Therapeutic Activities, Therapeutic Exercises Modalities Cold Pack/Ice Massage,Electric Stimulation,Hot Packs, Ultrasound Next Visit Focus/Plan Next Note Type Treatment Note Next Visit Plan Gentle strengthening/mobility, STM, gait training, balance/ ankle strategies.
--- NOTE | 2023-02-09 17:56 | PT.OPPOC ---
Physical, Occupational & Speech Therapy At [facility] Current Diagnoses Pain in left ankle and joints of left foot (02/09/23) Pain in leg, unspecified (02/09/23) Visit Care Team Role Provider Type Yaw Birmingham MD Attending Provider Physician Family Provider Primary Care Provider Referring Provider Specialty: Internal Medicine Address: [address] [place] [address], [address], [facility] Email: [email or web address] Plan Of Care PT-OP-T Assessment and Plan Start: 02/09/23 17:24 Freq: Status: Active Protocol: Document 02/09/23 16:30 DCW (Rec: 02/09/23 17:55 DCW [id number]) Physical Therapy Assessment Rehab Potential Rehabilitation Potential Fair Evaluation Complexity Number of Personal Factors/Comorbidities 1-2 Number of Body Systems Impaired 1-2 Clinical Presentation at Evaluation Stable Impairments Impairments Functional Activities, Functional Mobility,Gait,Pain, Strength Goals Two Impairment Pt unable to perform usual exercise routine due to left ankle/calf pain Fdc Goal (LTG) Pt to return to prior level of 85% frequency and intensity of exercise routine without limitations due to ankle pain or weakness. LTG Duration 04/10/23 One Impairment Pt does not have an appropriate home exercise program Short Term Goal (STG) Pt to be independent and compliant with an appropriate HEP STG Duration 03/12/23 Assessment Summary Assessment Pt presents with signs and symptoms consistent with lower leg soft tissue injury. Based on continued pain and weakness, combined with pt's reports of multiple popping sounds at the time of injury, may be suggestive of potential muscle tears. Pt's biggest limitations are inversion and plantar flexion. Pain along medial malleoli, navicular insertion, and medial/ posterior calf likely suggestive of posterior tibialis involvement. Would strongly suggest advanced imaging to determine extent of potential damage and to rule in/out potential tearing. Pt may benefit from gentle mobility and strengthening exercises, if does not progress as expected, may be necessary to refer to Ortho. Physical Therapy Plan Frequency and Duration Frequency of Treatment 1-2x/week Plan of Care Start Date 02/09/23 Plan of Care End Date 04/10/23 Therapeutic Interventions Therapeutic Interventions Balance Training,Home Exercise Program,Manual Therapy, Neuromuscular Re-education, Patient/Caregiver Education, Self-Care/Home Management,Soft Tissue Mobilization, Therapeutic Activities, Therapeutic Exercises Modalities Cold Pack/Ice Massage,Electric Stimulation,Hot Packs, Ultrasound Next Visit Focus/Plan Next Note Type Treatment Note Next Visit Plan Gentle strengthening/mobility, STM, gait training, balance/ ankle strategies. Plan of Care Dates Plan of Care Start Date 02/09/23 Plan of Care End Date 04/10/23 Electronically Signed by: Robe Lomax, PT 02/09/23 0698 If you are in agreement with this Plan of Care, please return a signed and dated copy. I have reviewed this Plan of Care and certify that the skilled therapy services above are required to meet the patient?s needs. Physician Signature Date Printed Name and Credentials Clinical Instructor Signature Printed Name and Credentials
--- NOTE | 2023-02-15 16:48 | PT.OTN ---
Current Diagnoses Pain in left ankle and joints of left foot (02/15/23) Pain in leg, unspecified (02/15/23) Physical Therapy Treatment Note PT-OP-A Visit Information Start: 02/09/23 17:24 Freq: Status: Active Protocol: Document 02/15/23 16:00 DCW (Rec: 02/15/23 16:48 DCW [id number]) Out-Patient Physical Therapy Visit Information Visit Information Visit Type Treatment Note Visit Start Time 16:00 Visit Stop Time 16:45 Total Visit Minutes 45 Visit Number 2 Number of FINANCIAL REPRESENTATIVE Visits 0 Evaluation Information Evaluation Date 02/09/23 PT-OP-B Current Condition Start: 02/09/23 17:24 Freq: Status: Active Protocol: Document 02/09/23 16:30 DCW (Rec: 02/09/23 17:43 DCW [id number]) Current Condition History of Current Condition Onset Date January 15, 2023 Current Complaints left calf pain History of Current Condition Pt is a 47 year old female persenting with a 3.5 week history of left calf pain, limiting her ability to push- off with her foot during gait or raise up onto her toes. Pt reports she was exercising gently on an eliptical, felt a pop with medial calf pain, and stopped for a bit to let it pass. Upon restarting, she felt another pop, with significantly more pain, and had to stop. Following this incident, she was having much more difficulty with ambulation, was unable to lift her toes or stretch her calf without significant discomfort . Has improved somewhat since initial injury, but still unable to perform a heel raise or get much push-off during gait. 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 Pt does have a history of bilateral Achilles injuries, reports that she was experiencing bilateral pain of an extended period of time, eventually found out she had tears in her Achilles tendons, and her recovery lasted ~18 months, finally resolving ~1 year ago. Has been doing well since then until last month. Seen by her PCP in 01/24/23, recommended MRI, but has been denied by insurance so far. Treatment Goals Patient/Caregiver Goals Return to normal work-out intensity and frequency PT-OP-C Subjective Start: 02/09/23 17:24 Freq: Status: Active Protocol: Document 02/15/23 16:00 DCW (Rec: 02/15/23 16:48 DCW [id number]) OP-PT Subjective Patient Comments Patient Comments I stretched today and it didn 't feel like it was tearing, so it's getting better I think . PT-OP-F Manual Assessment Start: 02/09/23 17:24 Freq: Status: Active Protocol: Document 02/09/23 16:30 DCW (Rec: 02/09/23 17:43 DCW [id number]) Manual Assessments Soft Tissue Assessment Soft Tissue Mobility Assessment Tenderness with palpation 3/4: Wincing and withdraw along poterior tibialis, minimal contraction/firing of posterior tib with ankle movement. Joint Mobility Assessment Joint Mobility Assessment Good stability of joint PT-OP-K Range of Motion Start: 02/09/23 17:24 Freq: Status: Active Protocol: Document 02/09/23 16:30 DCW (Rec: 02/09/23 17:43 DCW [id number]) Ankle and Foot Goniometric Range of Motion Ankle and Foot Bilateral Active Ankle/Foot ROM WFL Yes Testing Position Sitting PT-OP-M Strength Start: 02/09/23 17:24 Freq: Status: Active Protocol: Document 02/09/23 16:30 DCW (Rec: 02/09/23 17:43 DCW [id number]) Ankle/Foot Strength Ankle and Foot Manual Muscle Testing Left Plantarflexion (S1) 2+ Poor+ Comments Pain limits PF PT-OP-Q Treatments Start: 02/09/23 17:24 Freq: Status: Active Protocol: Document 02/15/23 16:00 DCW (Rec: 02/15/23 16:48 DCW [id number]) Gym Equipment Shuttle Balance Red Details WBOS, Staggered, Lateral weight shift Therapeutic Exercises Sitting Exercises Self-STM Sitting Exercise Name Self-STM medial calf using roller Side left Standing Exercises BAPS Standing Exercise Name BAPS Side left Resistance Lv 4 Comments DF/PF, Inv/Ev, CW/CCW Calf Stretch Standing Exercise Name Calf stretch off step Comments Better with straight leg, increased pain with bent knee Neuro Re-Education Treatment Balance Activities BOSU Details BOSU Lunge Surface Blue BOSU SLS Details SLS Surface Black Foam PT-OP-T Assessment and Plan Start: 02/09/23 17:24 Freq: Status: Active Protocol: Document 02/15/23 16:00 DCW (Rec: 02/15/23 16:48 DCW [id number]) Physical Therapy Assessment Impairments Impairments Functional Activities, Functional Mobility,Gait,Pain, Strength Goals Two Impairment Pt unable to perform usual exercise routine due to left ankle/calf pain Air Crew Supervisor Goal (LTG) Pt to return to prior level of 85% frequency and intensity of exercise routine without limitations due to ankle pain or weakness. LTG Duration 04/10/23 One Impairment Pt does not have an appropriate home exercise program Short Term Goal (STG) Pt to be independent and compliant with an appropriate HEP STG Duration 03/12/23 Assessment Summary Assessment Pt showing some improvement with tolerance to calf stretching and strengthening exercises, still discomfort attempting eccentric lowering. Did well with addition of balance challenges/ankle strategies. Physical Therapy Plan Frequency and Duration Frequency of Treatment 1-2x/week Plan of Care Start Date 02/09/23 Plan of Care End Date 04/10/23 Therapeutic Interventions Therapeutic Interventions Balance Training,Home Exercise Program,Manual Therapy, Neuromuscular Re-education, Patient/Caregiver Education, Self-Care/Home Management,Soft Tissue Mobilization, Therapeutic Activities, Therapeutic Exercises Modalities Cold Pack/Ice Massage,Electric Stimulation,Hot Packs, Ultrasound Next Visit Focus/Plan Next Note Type Treatment Note Next Visit Plan Gentle strengthening/mobility, STM, gait training, balance/ ankle strategies.
--- NOTE | 2023-02-23 11:12 | PT.OTN ---
Current Diagnoses Pain in left ankle and joints of left foot (02/23/23) Pain in leg, unspecified (02/23/23) Physical Therapy Treatment Note PT-OP-A Visit Information Start: 02/09/23 17:24 Freq: Status: Active Protocol: Document 02/23/23 10:35 DCW (Rec: 02/23/23 11:12 DCW [id number]) Out-Patient Physical Therapy Visit Information Visit Information Visit Type Treatment Note Visit Start Time 10:35 Visit Stop Time 11:15 Total Visit Minutes 40 Visit Number 3 Number of SENIOR HEALTH PHYSICS TECHNICIAN Visits 0 Evaluation Information Evaluation Date 02/09/23 PT-OP-B Current Condition Start: 02/09/23 17:24 Freq: Status: Active Protocol: Document 02/09/23 16:30 DCW (Rec: 02/09/23 17:43 DCW [id number]) Current Condition History of Current Condition Onset Date January 15, 2023 Current Complaints left calf pain History of Current Condition Pt is a 47 year old female persenting with a 3.5 week history of left calf pain, limiting her ability to push- off with her foot during gait or raise up onto her toes. Pt reports she was exercising gently on an eliptical, felt a pop with medial calf pain, and stopped for a bit to let it pass. Upon restarting, she felt another pop, with significantly more pain, and had to stop. Following this incident, she was having much more difficulty with ambulation, was unable to lift her toes or stretch her calf without significant discomfort . Has improved somewhat since initial injury, but still unable to perform a heel raise or get much push-off during gait. 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 Pt does have a history of bilateral Achilles injuries, reports that she was experiencing bilateral pain of an extended period of time, eventually found out she had tears in her Achilles tendons, and her recovery lasted ~18 months, finally resolving ~1 year ago. Has been doing well since then until last month. Seen by her PCP in 01/24/23, recommended MRI, but has been denied by insurance so far. Treatment Goals Patient/Caregiver Goals Return to normal work-out intensity and frequency PT-OP-C Subjective Start: 02/09/23 17:24 Freq: Status: Active Protocol: Document 02/23/23 10:35 DCW (Rec: 02/23/23 11:12 DCW [id number]) OP-PT Subjective Patient Comments Patient Comments In typical [place] fashion, I tried jogging on a treadmill yesterday, and it actually went not too bad. I did have some pain, it wasn't really fast. PT-OP-F Manual Assessment Start: 02/09/23 17:24 Freq: Status: Active Protocol: Document 02/09/23 16:30 DCW (Rec: 02/09/23 17:43 DCW [id number]) Manual Assessments Soft Tissue Assessment Soft Tissue Mobility Assessment Tenderness with palpation 3/4: Wincing and withdraw along poterior tibialis, minimal contraction/firing of posterior tib with ankle movement. Joint Mobility Assessment Joint Mobility Assessment Good stability of joint PT-OP-K Range of Motion Start: 02/09/23 17:24 Freq: Status: Active Protocol: Document 02/09/23 16:30 DCW (Rec: 02/09/23 17:43 DCW [id number]) Ankle and Foot Goniometric Range of Motion Ankle and Foot Bilateral Active Ankle/Foot ROM WFL Yes Testing Position Sitting PT-OP-M Strength Start: 02/09/23 17:24 Freq: Status: Active Protocol: Document 02/09/23 16:30 DCW (Rec: 02/09/23 17:43 DCW [id number]) Ankle/Foot Strength Ankle and Foot Manual Muscle Testing Left Plantarflexion (S1) 2+ Poor+ Comments Pain limits PF PT-OP-Q Treatments Start: 02/09/23 17:24 Freq: Status: Active Protocol: Document 02/23/23 10:35 DCW (Rec: 02/23/23 11:12 DCW [id number]) Gym Equipment Shuttle Recovery Unilateral Heel Raises Resistance 50# Shuttle Balance Red Details WBOS, Staggered, Lateral weight shift Therapeutic Exercises Sitting Exercises Self-STM Sitting Exercise Name Self-STM lateral calf using roller Side left Standing Exercises BAPS Standing Exercise Name BAPS Side left Resistance Lv 4 Comments DF/PF, Inv/Ev, CW/CCW Manual Therapy Treatment Soft Tissue Mobilization Calf Body Location Posterior tib, Gastrosoleus Mobilization Type Strumming,Sustained Pressure Intensity/Depth Moderate Body Position Sitting Neuro Re-Education Treatment Balance Activities BOSU Details BOSU Lunge Surface Blue BOSU SLS Details SLS Surface Black Foam PT-OP-T Assessment and Plan Start: 02/09/23 17:24 Freq: Status: Active Protocol: Document 02/23/23 10:35 DCW (Rec: 02/23/23 11:12 DCW [id number]) Physical Therapy Assessment Impairments Impairments Functional Activities, Functional Mobility,Gait,Pain, Strength Goals Two Impairment Pt unable to perform usual exercise routine due to left ankle/calf pain Nursing Home Goal (LTG) Pt to return to prior level of 85% frequency and intensity of exercise routine without limitations due to ankle pain or weakness. LTG Duration 04/10/23 One Impairment Pt does not have an appropriate home exercise program Short Term Goal (STG) Pt to be independent and compliant with an appropriate HEP STG Duration 03/12/23 Assessment Summary Assessment Good response overall to PT, showing good improvements. Is experiencing increased pain more laterally when trying to jog, but initial areas much better. Physical Therapy Plan Frequency and Duration Frequency of Treatment 1-2x/week Plan of Care Start Date 02/09/23 Plan of Care End Date 04/10/23 Therapeutic Interventions Therapeutic Interventions Balance Training,Home Exercise Program,Manual Therapy, Neuromuscular Re-education, Patient/Caregiver Education, Self-Care/Home Management,Soft Tissue Mobilization, Therapeutic Activities, Therapeutic Exercises Modalities Cold Pack/Ice Massage,Electric Stimulation,Hot Packs, Ultrasound Next Visit Focus/Plan Next Note Type Treatment Note Next Visit Plan Gentle strengthening/mobility, STM, gait training, balance/ ankle strategies.
--- NOTE | 2023-04-07 16:45 | PT.OTN ---
Current Diagnoses Pain in left ankle and joints of left foot (04/07/23) Pain in leg, unspecified (04/07/23) Physical Therapy Treatment Note PT-OP-A Visit Information Start: 02/09/23 17:24 Freq: Status: Active Protocol: Document 04/07/23 16:00 DCW (Rec: 04/07/23 16:45 DCW [id number]) Out-Patient Physical Therapy Visit Information Visit Information Visit Type Discharge Summary Visit Start Time 16:00 Visit Stop Time 16:45 Visit Number 4 Number of RN FORENSIC Visits 0 Evaluation Information Evaluation Date 02/09/23 PT-OP-B Current Condition Start: 02/09/23 17:24 Freq: Status: Active Protocol: Document 02/09/23 16:30 DCW (Rec: 02/09/23 17:43 DCW [id number]) Current Condition History of Current Condition Onset Date January 15, 2023 Current Complaints left calf pain History of Current Condition Pt is a 47 year old female persenting with a 3.5 week history of left calf pain, limiting her ability to push- off with her foot during gait or raise up onto her toes. Pt reports she was exercising gently on an eliptical, felt a pop with medial calf pain, and stopped for a bit to let it pass. Upon restarting, she felt another pop, with significantly more pain, and had to stop. Following this incident, she was having much more difficulty with ambulation, was unable to lift her toes or stretch her calf without significant discomfort . Has improved somewhat since initial injury, but still unable to perform a heel raise or get much push-off during gait. 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 Pt does have a history of bilateral Achilles injuries, reports that she was experiencing bilateral pain of an extended period of time, eventually found out she had tears in her Achilles tendons, and her recovery lasted ~18 months, finally resolving ~1 year ago. Has been doing well since then until last month. Seen by her PCP in 01/24/23, recommended MRI, but has been denied by insurance so far. Treatment Goals Patient/Caregiver Goals Return to normal work-out intensity and frequency PT-OP-C Subjective Start: 02/09/23 17:24 Freq: Status: Active Protocol: Document 04/07/23 16:00 DCW (Rec: 04/07/23 16:45 DCW [id number]) OP-PT Subjective Patient Comments Patient Comments It's not perfect. I've been doing intervals in the treadmil, can't walk uphill, but my functionaly is a lot better. No feeling like tearing or ripping apart. PT-OP-F Manual Assessment Start: 02/09/23 17:24 Freq: Status: Active Protocol: Document 02/09/23 16:30 DCW (Rec: 02/09/23 17:43 DCW [id number]) Manual Assessments Soft Tissue Assessment Soft Tissue Mobility Assessment Tenderness with palpation 3/4: Wincing and withdraw along poterior tibialis, minimal contraction/firing of posterior tib with ankle movement. Joint Mobility Assessment Joint Mobility Assessment Good stability of joint PT-OP-K Range of Motion Start: 02/09/23 17:24 Freq: Status: Active Protocol: Document 02/09/23 16:30 DCW (Rec: 02/09/23 17:43 DCW [id number]) Ankle and Foot Goniometric Range of Motion Ankle and Foot Bilateral Active Ankle/Foot ROM WFL Yes Testing Position Sitting PT-OP-M Strength Start: 02/09/23 17:24 Freq: Status: Active Protocol: Document 02/09/23 16:30 DCW (Rec: 02/09/23 17:43 DCW [id number]) Ankle/Foot Strength Ankle and Foot Manual Muscle Testing Left Plantarflexion (S1) 2+ Poor+ Comments Pain limits PF PT-OP-Q Treatments Start: 02/09/23 17:24 Freq: Status: Active Protocol: Document 04/07/23 16:00 DCW (Rec: 04/07/23 16:45 DCW [id number]) Gym Equipment Shuttle Recovery Plyometric hopping Details Plyometric hopping Resistance 50# Shuttle Rebound Hopping Exercise Details Single leg hopping Shuttle Balance Red Details WBOS, Staggered, Lateral weight shift Manual Therapy Treatment Soft Tissue Mobilization Calf Body Location Posterior tib, Gastrosoleus Mobilization Type Strumming,Sustained Pressure Intensity/Depth Moderate Body Position Sitting Neuro Re-Education Treatment Balance Activities BOSU Details BOSU Lunge Surface Blue BOSU PT-OP-T Assessment and Plan Start: 02/09/23 17:24 Freq: Status: Active Protocol: Document 04/07/23 16:00 DCW (Rec: 04/07/23 16:45 DC [id number]) Physical Therapy Assessment Impairments Impairments Functional Activities, Functional Mobility,Gait,Pain, Strength Goals Two Impairment Pt unable to perform usual exercise routine due to left ankle/calf pain Nursing Home Goal (LTG) Pt to return to prior level of 85% frequency and intensity of exercise routine without limitations due to ankle pain or weakness. LTG Duration Met One Impairment Pt does not have an appropriate home exercise program Short Term Goal (STG) Pt to be independent and compliant with an appropriate HEP STG Duration Met Assessment Summary Assessment Pt largely doing well, has returned to a relatively normal exercise level, is not experiencing the same feeling of pain/tearing with stretch and activity. Feels like she is comfortable with independent HEP. Is still very noticeably demonstrating significantly increased tone along posterior tib, continues to be very tender with palpation. Recommended to pt if this does not improve over the next month, she should return to referring physician. Pt will be discharged from skilled therapy at this time. Physical Therapy Plan Frequency and Duration Frequency of Treatment 1-2x/week Plan of Care Start Date 02/09/23 Plan of Care End Date 04/10/23 Therapeutic Interventions Therapeutic Interventions Balance Training,Home Exercise Program,Manual Therapy, Neuromuscular Re-education, Patient/Caregiver Education, Self-Care/Home Management,Soft Tissue Mobilization, Therapeutic Activities, Therapeutic Exercises Modalities Cold Pack/Ice Massage,Electric Stimulation,Hot Packs, Ultrasound Discharge Physical Therapy Discharge Reasons Goals Met Next Visit Focus/Plan Next Note Type Treatment Note Next Visit Plan Gentle strengthening/mobility, STM, gait training, balance/ ankle strategies.
== END 2023-04-19 07:58 | disposition home or self-care (01) ==
LOC: PHYS 16:00
PROVIDERS: Family Provider Internal Medicine; PCP Internal Medicine; Referring Provider Internal Medicine; Visit Provider Internal Medicine
DX: M79.606 Pain in leg, unspecified (principal); M25.572 Pain in left ankle and joints of left foot
CPT/HCPCS: 97110; 97112; 97140; 97161

== ENCOUNTER → 2023-10-26 15:49 | Outpatient (CLI) | payer OTHER, SELFPAY ==
--- NOTE | 2023-10-26 15:51 | DI.MG.S_ITS ---
BILATERAL DIGITAL SCREENING MAMMOGRAM 3D/2D WITH CAD: 10/26/2023 CLINICAL: Routine screening. Family history of breast cancer. Comparison is made to exams dated: 08/13/2022 mammogram, 08/11/2021 mammogram, 08/09/2019 mammogram, and 01/17/2018 mammogram - . The breasts are heterogeneously dense, which may obscure small masses (category c / 51-75% glandular tissue). Current study was also evaluated with a Computer Aided Detection (CAD) system. No significant masses, calcifications, or other findings are seen in either breast. There has been no significant interval change. IMPRESSION: NEGATIVE There is no mammographic evidence of malignancy. A 1 year screening mammogram is recommended. Based on the Tyrer Cuzick model (a risk assessment model) the patient's lifetime risk is 19.5% and her 10 year risk is 4.8%. According to the ACR, ACS, and NCCN guidelines, an annual breast MRI exam along with mammogram is recommended if the patient's lifetime risk is 20% or greater. This exam was interpreted at Station ID: [id number]. NOTE: For mammograms, a report in lay terms will be sent to the patient. Approximately 15% of breast malignancies will not be visualized mammographically. In the management of a palpable breast mass, a negative mammogram must not discourage biopsy of a clinically suspicious lesion. Electronically Signed By: Kofi allan/lei:10/28/2023 11:37:06 letter sent: Normal Exam ACR BI-RADS Category 1: Negative
== END ==
LOC: MAMMO 15:50
PROVIDERS: Family Provider Internal Medicine; PCP Internal Medicine; Referring Provider Internal Medicine; Visit Provider Internal Medicine
DX: Z12.31 Encounter for screening mammogram for malignant neoplasm of breast (principal); Z80.3 Family history of malignant neoplasm of breast; R92.333 Mammographic heterogeneous density, bilateral breasts
CPT/HCPCS: 77063; 77067

== ENCOUNTER → 2024-02-15 15:07 | Outpatient (CLI) | payer OTHER, SELFPAY ==
--- NOTE | 2024-02-15 15:10 | DI.US.S_ITS ---
PROCEDURE: US PELVIC COMPLETE INDICATIONS: right lower quad pain; hx of R ovarian cyst on 2021 US TECHNIQUE: Real-time scanning was performed of the pelvic organs, with image documentation. Additional endovaginal scanning was necessary due to incomplete visualization of the adnexal and endometrial structures by transabdominal scanning. COMPARISON: [facility], US, US PELVIC COMPLETE, 12/16/2021, 15:46. FINDINGS: Uterus: 9.1 x 3.8 x 4.6 cm. Anteverted positioning. IUD is seen within the endometrial body. Endometrium measures combined thickness of 3 mm. Ovaries: Nonenlarged bilaterally measuring 1 cc on the right and 3 cc on the left. No adnexal mass. Other: No pathologic free fluid. IMPRESSION: No acute or significant sonographic abnormalities in the pelvis. IUD is seen in appropriate position. Dictated by: Juan Ramon Pritchard M.D. on 02/16/2024 at 11:02 Approved by: Juan Ramon Pritchard M.D. on 02/16/2024 at 11:03
== END ==
LOC: US 15:09
PROVIDERS: Family Provider Internal Medicine; PCP Internal Medicine; Referring Provider Physician Assistant; Visit Provider Physician Assistant
DX: R10.31 Right lower quadrant pain (principal); Z97.5 Presence of (intrauterine) contraceptive device
CPT/HCPCS: 76830; 76856

== ENCOUNTER 2024-04-05 17:00 | Outpatient (RCR) | payer OTHER, SELFPAY ==
--- NOTE | 2024-04-03 17:16 | PT.OIE ---
Current Diagnoses Pain in left ankle and joints of left foot (04/03/24) Past Medical History (Last Reviewed 09/13/22 @ 17:14 by Rishabh Cota DO) Actinic keratosis Allergic rhinitis Chicken pox Chronic headaches Facet arthropathy, lumbar Hayfever Herniated nucleus pulposus, L5-S1 Herpes Intrauterine contraceptive device threads lost Irritable bowel syndrome (06/18/11) Lumbar radiculopathy Lumbar spine pain Raynauds syndrome (06/18/11) Recurrent sinusitis Past Surgical History (Last Reviewed 09/13/22 @ 17:14 by Rishabh Ctoa DO) Anesthesia complication History of photorefractive keratectomy (PRK) (05/2000) IUD (intrauterine device) in place Status post delivery (06/2002) Visit Care Team Role Provider Type Yaw Birmingham MD Attending Provider Physician Family Provider Primary Care Provider Referring Provider Specialty: Internal Medicine Address: [address] [place] [address], [facility] Email: [email or web address] Physical Therapy Initial Evaluation PT-OP-A Visit Information Start: 04/03/24 14:54 Freq: Status: Active Protocol: Document 04/03/24 16:10 DCW (Rec: 04/03/24 17:16 DCW [id number]) Out-Patient Physical Therapy Visit Information Visit Information Visit Type Initial Evaluation Visit Start Time 16:10 Visit Stop Time 16:45 Visit Number 1 Number of POURER METAL Visits 0 Evaluation Information Evaluation Date 04/03/24 PT-OP-B Current Condition Start: 04/03/24 14:54 Freq: Status: Active Protocol: Document 04/03/24 16:10 DCW (Rec: 04/03/24 17:16 DCW [id number]) Current Condition History of Current Condition Onset Date December, Current Complaints Limitations in left ankle passive and active Plantar Flexion History of Current Condition Pt is a 48 year old female presenting with a three month history of decreased left ankle mobility. Pt reports that in December, she missed a step and very badly rolled her left ankle. Pt expected to be in a lot of pain and unable to ambulate, however, surprisingly, was able to get right back up and walk without any pain. Pt has not been limited in her workouts ( running or biking), and experiences no pain with work or walking. Pt reports she is unable to actively point her foot, or perform passive dorsiflexion (kneeling on the floor, attempting to perform a standing quad stretch) without pain. Treatment Goals Patient/Caregiver Goals Improve active and passive left ankle PF PT-OP-C Subjective Start: 04/03/24 14:54 Freq: Status: Active Protocol: Document 04/03/24 16:10 DCW (Rec: 04/03/24 17:16 DCW [id number]) OP-PT Subjective Patient Comments Patient Comments I don't really know why it doesn't hurt with running, it' s really weird. PT-OP-F Manual Assessment Start: 04/03/24 14:54 Freq: Status: Active Protocol: Document 04/03/24 16:10 DCW (Rec: 04/03/24 17:16 DCW [id number]) Manual Assessments Soft Tissue Assessment Soft Tissue Mobility Assessment L>R calf tone, tenderness to palpation 2/4: pain with wincing Joint Mobility Assessment Joint Mobility Assessment Tenderness at left ATF and PTF ligaments. PT-OP-K Range of Motion Start: 04/03/24 14:54 Freq: Status: Active Protocol: Document 04/03/24 16:10 DCW (Rec: 04/03/24 17:16 DCW [id number]) Ankle and Foot Goniometric Range of Motion Ankle and Foot Right Active Testing Position Sitting Plantarflexion 60 Inversion 45 Eversion 20 Left Active Testing Position Sitting Plantarflexion 45 Inversion 35 Eversion 10 PT-OP-L Special Tests Start: 04/03/24 14:54 Freq: Status: Active Protocol: Document 04/03/24 16:10 DCW (Rec: 04/03/24 17:16 DCW [id number]) Special Tests Foot/Ankle Special Tests Post Tibiotalor Subluxation Test Results Negative Peroneal Subluxation Test Results Negative Anterior Draw Test Results Negative PT-OP-M Strength Start: 04/03/24 14:54 Freq: Status: Active Protocol: Document 04/03/24 16:10 DCW (Rec: 04/03/24 17:16 DCW [id number]) Ankle/Foot Strength Ankle and Foot Manual Muscle Testing Right Plantarflexion (S1) 4+ Good+ Left Plantarflexion (S1) 3+ Fair+ PT-OP-Q Treatments Start: 04/03/24 14:54 Freq: Status: Active Protocol: Document 04/03/24 16:10 DCW (Rec: 04/03/24 17:16 DCW [id number]) Therapeutic Exercises Sitting Exercises Ankle flexion Sitting Exercise Name Ankle inversion, eversion Side left Resistance Lv 2 Standing Exercises Heel Raises Standing Exercise Name Single leg heel raise Side left PT-OP-T Assessment and Plan Start: 04/03/24 14:54 Freq: Status: Active Protocol: Document 04/03/24 16:10 DCW (Rec: 04/03/24 17:16 DCW [id number]) Physical Therapy Assessment Rehab Potential Rehabilitation Potential Good Evaluation Complexity Number of Personal Factors/Comorbidities 1-2 Number of Body Systems Impaired 3 Clinical Presentation at Evaluation Unstable Impairments Impairments Pain,ROM,Strength Goals Two Impairment Pt unable to kneel on floor due to pain with excessive PF Bi Solutions Architect Goal (LTG) Pt to improve active left plantar flexion to >55? without pain in order to improve ability to kneel and perform standing quad stretch without pain LTG Duration 06/01/24 One Impairment Pt does not have an appropriate home exercise program Short Term Goal (STG) Pt to be independent and compliant with an appropriate HEP STG Duration 05/01/24 Assessment Summary Assessment Pt presents with a fairly unusual series of symptoms. Following an ankle sprain three months ago, pt's only symptoms has been a decrease in both active and passive plantar flexion secondary to pain. Pt does not exhibit and join laxity, is able to run, both on trails and treadmills, spend all day standing on her feet at work, and perform all daily activities without pain , unless the ankle is put into plantar flexion >45?. Pt was able to tolerate more passive ROM with distraction of the joint, and felt increased pain with joint compression, which may indicate that there is damage to the joint surface. Pt also exhibits weakness in left foot, with plantar flexion MMT of 3+/5, compared to a 4+/5 on the right. Pt may benefit from skilled therapy with focus on strengthening, ankle ROM, and joint mobs. If pt does not progress as expected, may benefit from advanced imaging. Physical Therapy Plan Frequency and Duration Frequency of Treatment 2x/Week Plan of Care Start Date 04/03/24 Plan of Care End Date 04/25/25 Therapeutic Interventions Therapeutic Interventions Home Exercise Program,Joint Mobilizations,Manual Therapy, Neuromuscular Re-education, Patient/Caregiver Education, Self-Care/Home Management,Soft Tissue Mobilization,Taping, Therapeutic Activities, Therapeutic Exercises Next Visit Focus/Plan Next Note Type Treatment Note Next Visit Plan STM, joint mobs, ankle strengthening
--- NOTE | 2024-04-03 17:16 | PT.OPPOC ---
Physical, Occupational & Speech Therapy At [facility] Current Diagnoses Pain in left ankle and joints of left foot (04/03/24) Visit Care Team Role Provider Type Yaw Birmingham MD Attending Provider Physician Family Provider Primary Care Provider Referring Provider Specialty: Internal Medicine Address: [address] [place] [address], [facility] Email: [email or web address] Plan Of Care PT-OP-B Current Condition Start: 04/03/24 14:54 Freq: Status: Active Protocol: Document 04/03/24 16:10 DCW (Rec: 04/03/24 17:16 DCW [id number]) Current Condition History of Current Condition Onset Date December, Current Complaints Limitations in left ankle passive and active Plantar Flexion History of Current Condition Pt is a 48 year old female presenting with a three month history of decreased left ankle mobility. Pt reports that in December, she missed a step and very badly rolled her left ankle. Pt expected to be in a lot of pain and unable to ambulate, however, surprisingly, was able to get right back up and walk without any pain. Pt has not been limited in her workouts ( running or biking), and experiences no pain with work or walking. Pt reports she is unable to actively point her foot, or perform passive dorsiflexion (kneeling on the floor, attempting to perform a standing quad stretch) without pain. Treatment Goals Patient/Caregiver Goals Improve active and passive left ankle PF PT-OP-T Assessment and Plan Start: 04/03/24 14:54 Freq: Status: Active Protocol: Document 04/03/24 16:10 DCW (Rec: 04/03/24 17:16 DCW [id number]) Physical Therapy Assessment Rehab Potential Rehabilitation Potential Good Evaluation Complexity Number of Personal Factors/Comorbidities 1-2 Number of Body Systems Impaired 3 Clinical Presentation at Evaluation Unstable Impairments Impairments Pain,ROM,Strength Goals Two Impairment Pt unable to kneel on floor due to pain with excessive PF Immigration Specialist Goal (LTG) Pt to improve active left plantar flexion to >55? without pain in order to improve ability to kneel and perform standing quad stretch without pain LTG Duration 06/01/24 One Impairment Pt does not have an appropriate home exercise program Short Term Goal (STG) Pt to be independent and compliant with an appropriate HEP STG Duration 05/01/24 Assessment Summary Assessment Pt presents with a fairly unusual series of symptoms. Following an ankle sprain three months ago, pt's only symptoms has been a decrease in both active and passive plantar flexion secondary to pain. Pt does not exhibit and join laxity, is able to run, both on trails and treadmills, spend all day standing on her feet at work, and perform all daily activities without pain , unless the ankle is put into plantar flexion >45?. Pt was able to tolerate more passive ROM with distraction of the joint, and felt increased pain with joint compression, which may indicate that there is damage to the joint surface. Pt also exhibits weakness in left foot, with plantar flexion MMT of 3+/5, compared to a 4+/5 on the right. Pt may benefit from skilled therapy with focus on strengthening, ankle ROM, and joint mobs. If pt does not progress as expected, may benefit from advanced imaging. Physical Therapy Plan Frequency and Duration Frequency of Treatment 2x/Week Plan of Care Start Date 04/03/24 Plan of Care End Date 06/01/24 Therapeutic Interventions Therapeutic Interventions Home Exercise Program,Joint Mobilizations,Manual Therapy, Neuromuscular Re-education, Patient/Caregiver Education, Self-Care/Home Management,Soft Tissue Mobilization,Taping, Therapeutic Activities, Therapeutic Exercises Next Visit Focus/Plan Next Note Type Treatment Note Next Visit Plan STM, joint mobs, ankle strengthening Plan of Care Dates Plan of Care Start Date 04/03/24 Plan of Care End Date 06/01/24 Electronically Signed by: Robe Lomax, PT 04/03/24 4315 If you are in agreement with this Plan of Care, please return a signed and dated copy. I have reviewed this Plan of Care and certify that the skilled therapy services above are required to meet the patient?s needs. Physician Signature Date Printed Name and Credentials Clinical Instructor Signature Printed Name and Credentials
--- NOTE | 2024-04-05 17:53 | PT.OTN ---
Current Diagnoses Pain in left ankle and joints of left foot (04/05/24) Physical Therapy Treatment Note PT-OP-A Visit Information Start: 04/03/24 14:54 Freq: Status: Active Protocol: Document 04/05/24 17:00 DCW (Rec: 04/05/24 17:52 DCW [id number]) Out-Patient Physical Therapy Visit Information Visit Information Visit Type Treatment Note Visit Start Time 17:00 Visit Stop Time 17:45 Visit Number 2 Number of GROCERY MANAGER Visits 0 Evaluation Information Evaluation Date 04/03/24 PT-OP-B Current Condition Start: 04/03/24 14:54 Freq: Status: Active Protocol: Document 04/03/24 16:10 DCW (Rec: 04/03/24 17:16 DCW [id number]) Current Condition History of Current Condition Onset Date December, Current Complaints Limitations in left ankle passive and active Plantar Flexion History of Current Condition Pt is a 48 year old female presenting with a three month history of decreased left ankle mobility. Pt reports that in December, she missed a step and very badly rolled her left ankle. Pt expected to be in a lot of pain and unable to ambulate, however, surprisingly, was able to get right back up and walk without any pain. Pt has not been limited in her workouts ( running or biking), and experiences no pain with work or walking. Pt reports she is unable to actively point her foot, or perform passive dorsiflexion (kneeling on the floor, attempting to perform a standing quad stretch) without pain. Treatment Goals Patient/Caregiver Goals Improve active and passive left ankle PF PT-OP-C Subjective Start: 04/03/24 14:54 Freq: Status: Active Protocol: Document 04/05/24 17:00 DCW (Rec: 04/05/24 17:52 DCW [id number]) OP-PT Subjective Patient Comments Patient Comments Pt notes HEP (specifically resisted eversion) has increased ankle soreness PT-OP-F Manual Assessment Start: 04/03/24 14:54 Freq: Status: Active Protocol: Document 04/03/24 16:10 DCW (Rec: 04/03/24 17:16 DCW [id number]) Manual Assessments Soft Tissue Assessment Soft Tissue Mobility Assessment L>R calf tone, tenderness to palpation 2/4: pain with wincing Joint Mobility Assessment Joint Mobility Assessment Tenderness at left ATF and PTF ligaments. PT-OP-K Range of Motion Start: 04/03/24 14:54 Freq: Status: Active Protocol: Document 04/03/24 16:10 DCW (Rec: 04/03/24 17:16 DCW [id number]) Ankle and Foot Goniometric Range of Motion Ankle and Foot Right Active Testing Position Sitting Plantarflexion 60 Inversion 45 Eversion 20 Left Active Testing Position Sitting Plantarflexion 45 Inversion 35 Eversion 10 PT-OP-L Special Tests Start: 04/03/24 14:54 Freq: Status: Active Protocol: Document 04/03/24 16:10 DCW (Rec: 04/03/24 17:16 DCW [id number]) Special Tests Foot/Ankle Special Tests Post Tibiotalor Subluxation Test Results Negative Peroneal Subluxation Test Results Negative Anterior Draw Test Results Negative PT-OP-M Strength Start: 04/03/24 14:54 Freq: Status: Active Protocol: Document 04/03/24 16:10 DCW (Rec: 04/03/24 17:16 DCW [id number]) Ankle/Foot Strength Ankle and Foot Manual Muscle Testing Right Plantarflexion (S1) 4+ Good+ Left Plantarflexion (S1) 3+ Fair+ PT-OP-Q Treatments Start: 04/03/24 14:54 Freq: Status: Active Protocol: Document 04/05/24 17:00 DCW (Rec: 04/05/24 17:52 DCW [id number]) Gym Equipment Shuttle Balance Red Details WBOS DF/PF, Lateral weight shift Therapeutic Exercises Standing Exercises BAPS Standing Exercise Name Standing BAPS Side left Resistance Lv 4->5 Manual Therapy Treatment Consent Patient gave verbal consent for manual Yes treatment Joint Mobilizations Ankle Joint L ankle Direction P<->A, Inv<->Ev Grade III Self-Care/Home Management Treatment Education Other Education Assessment of gait pattern and shoe wear pattern, pt displays fairly extensive wear on lateral portion of heel bilaterally PT-OP-T Assessment and Plan Start: 04/03/24 14:54 Freq: Status: Active Protocol: Document 04/05/24 17:00 DCW (Rec: 04/05/24 17:52 DCW [id number]) Physical Therapy Assessment Impairments Impairments Pain,ROM,Strength Goals Two Impairment Pt unable to kneel on floor due to pain with excessive PF Half-Way Goal (LTG) Pt to improve active left plantar flexion to >55? without pain in order to improve ability to kneel and perform standing quad stretch without pain LTG Duration 06/01/24 One Impairment Pt does not have an appropriate home exercise program Short Term Goal (STG) Pt to be independent and compliant with an appropriate HEP STG Duration 05/01/24 Assessment Summary Assessment Pt continues to exhibit unusual symptoms, continue to suspect damage to the talar joint surface, can replicate pain with plantarflexion >40? or with compression through joint. Pt agreeable to wear running shoes next visit in order to assess running technique. Physical Therapy Plan Frequency and Duration Frequency of Treatment 2x/Week Plan of Care Start Date 04/03/24 Plan of Care End Date 06/01/24 Therapeutic Interventions Therapeutic Interventions Home Exercise Program,Joint Mobilizations,Manual Therapy, Neuromuscular Re-education, Patient/Caregiver Education, Self-Care/Home Management,Soft Tissue Mobilization,Taping, Therapeutic Activities, Therapeutic Exercises Next Visit Focus/Plan Next Note Type Treatment Note Next Visit Plan STM, joint mobs, ankle strengthening
--- NOTE | 2024-11-27 16:11 | PT.OPDS ---
Current Diagnoses Pain in left ankle and joints of left foot (04/05/24) Visit Care Team Role Provider Type Yaw Birmingham MD Attending Provider Physician Family Provider Primary Care Provider Referring Provider Specialty: Internal Medicine Address: [address] [place] [address], [address], [address] Email: [email or web address] Visit Number Visit Number 2 Discharge Summary PT-OP-T Assessment and Plan Start: 04/03/24 14:54 Freq: Status: Active Protocol: Document 11/27/24 16:10 DCW (Rec: 11/27/24 16:11 DCW [id number]) Physical Therapy Assessment Assessment Summary Assessment Pt did not call to schedule further follow-up visits. Pt has currently not been seen in more than seven months, will be discharged from skilled therapy at this time. Physical Therapy Plan Discharge Physical Therapy Discharge Reasons No Longer Attending PT
== END 2024-11-28 09:57 | disposition home or self-care (01) ==
LOC: PHYS 17:00
PROVIDERS: Family Provider Internal Medicine; PCP Internal Medicine; Referring Provider Internal Medicine; Visit Provider Internal Medicine
DX: M25.572 Pain in left ankle and joints of left foot (principal)
CPT/HCPCS: 97110; 97140; 97162; 97535

== ENCOUNTER → 2024-10-12 16:29 | Outpatient (CLI) | payer OTHER, SELFPAY ==
[2024-10-12 16:47] LABS: Add Manual Diff / Slide Review NO; Hematocrit 37.8 % (36-46); Hemoglobin 12.8 g/dL (12.0-16.0); Lymphocytes Absolute Auto 1900 /uL (1100-4500); Mean Corpuscular HGB Conc 33.7 % (30-36); Mean Corpuscular Hemoglobin 32.5 PG (26-34); Mean Corpuscular Volume 96.2 fL (80-100); Platelet Count 242 X10^3/uL (150-400)
[2024-10-12 17:04] LABS: Alanine Aminotransferase 23 IU/L (<35); Albumin 4.3 g/dL (3.5-5.0); Albumin Globulin Ratio 1.7 (1.0-2.8); Alkaline Phosphatase 64 U/L (38-126); Blood Urea Nitrogen 19 mg/dL (7-17); Calcium 9.3 mg/dL (8.4-10.2); Carbon Dioxide 27 mmol/L (22-32); Chloride 105 mmol/L (98-107); Estimated Glomerular Filt Rate > 60 mL/min (>60); Globulin 2.6 g/dL (1.7-4.1); Glucose 86 mg/dL (70-99); HEMOLYSIS < 15 (0-50); Potassium 4.2 mmol/L (3.4-5.1); Sodium 138 mmol/L (137-145); Total Protein 6.9 g/dL (6.3-8.2)
[2024-10-12 17:21] LABS: Free T4, Direct Thyroxine 0.84 ng/dL (0.78-2.19)
[2024-10-12 17:35] LABS: Thyroid Stimulating Hormone 2.59 uIU/mL (0.47-4.68)
== END ==
PROVIDERS: PCP Internal Medicine; Referring Provider Internal Medicine; Visit Provider Internal Medicine
DX: D64.9 Anemia, unspecified (principal); E03.9 Hypothyroidism, unspecified; I73.00 Raynaud's syndrome without gangrene
CPT/HCPCS: 36415; 80053; 84439; 84443; 85025

== ENCOUNTER → 2025-01-16 13:06 | Outpatient (CLI) | payer OTHER, SELFPAY ==
--- NOTE | 2025-01-16 13:07 | DI.RAD.S_ITS ---
PROCEDURE: XR LUMBAR SPINE MIN 4V INDICATIONS: BACK PAIN TECHNIQUE: 5 views of the lumbar spine were acquired, including bilateral oblique views. COMPARISON: [facility], , XR LUMBAR SPINE MIN 4V, 04/17/2020, 16:07. FINDINGS: Bones: 5 nonrib-bearing vertebrae are present. There is normal bony alignment. Severe degenerative disc height loss at L5-S1. No vertebral body compression fractures. No suspicious bony lesions. Soft tissues: Overlying bowel gas pattern is normal. No suspicious soft tissue calcifications. Oblique images: No pars defects. IMPRESSION: No acute bony abnormality. No pars defects. Dictated by: Jeovanny Wallis M.D. on 01/16/2025 at 14:09 Approved by: Jeovanny Wallis M.D. on 01/16/2025 at 14:10
== END ==
PROVIDERS: PCP Internal Medicine; Referring Provider Physical Medicine & Rehabilitation; Visit Provider Physical Medicine & Rehabilitation
DX: M47.26 Other spondylosis with radiculopathy, lumbar region (principal); M51.17 Intervertebral disc disorders with radiculopathy, lumbosacral region
CPT/HCPCS: 72110

== ENCOUNTER → 2025-01-25 14:03 | Outpatient (CLI) | payer OTHER, SELFPAY ==
--- NOTE | 2025-01-25 14:04 | DI.MG.S_ITS ---
MM screening mammo BI: 01/25/2025. BI-RADS: 1 CLINICAL: 49-year old female for bilateral screening mammogram. Tyrer-Cuzick lifetime risk of 11.7%. No personal or first-degree family history of breast cancer. Current reported family history of breast cancer: maternal aunt. PRIOR EXAMS 10/26/2023, 08/13/2022, 08/11/2021, 08/09/2019. MAMMOGRAPHY TECHNIQUE: 2D and 3D (tomosynthesis) digital mammographic views obtained, with additional images as needed for full coverage. Current study was also evaluated with a Computer Aided Detection (CAD) system. DENSITY C. The breasts are heterogeneously dense, which may obscure small masses. MAMMOGRAPHY FINDINGS Bilateral: No suspicious mass, asymmetry, microcalcification, or other abnormality seen. IMPRESSION: * No evidence of malignancy. RECOMMENDATIONS Bilateral * Annual screening mammography. OVERALL ASSESSMENT CATEGORY BI-RADS-1: Negative. [employer] recommends annual screening mammography beginning at age 40 for women with average risk of breast cancer. ELECTRONICALLY SIGNED: Lynda Davila M.D. on 01/29/2025 at 08:40:28 AM PT Interpreting Station ID: [id number]
== END ==
LOC: MAMMO 14:04
PROVIDERS: PCP Internal Medicine; Referring Provider Internal Medicine; Visit Provider Internal Medicine
DX: Z12.31 Encounter for screening mammogram for malignant neoplasm of breast (principal); R92.333 Mammographic heterogeneous density, bilateral breasts; Z80.3 Family history of malignant neoplasm of breast
CPT/HCPCS: 77063; 77067